=== PATIENT | female | born 1995 | race Caucasian/White ===

== ENCOUNTER 2016-08-04 19:04 | Emergency (ER) | payer BC, MEDICAID ==
[2016-08-04 19:05] VITALS: BMI 24.8
[2016-08-04 19:53] VITALS: TEMP 98.3
[2016-08-04] MEDS ORDERED: Sodium Chloride 0.9% 1,000 ML IV ONE (20:03)
--- NOTE | 2016-08-04 20:03 | C.PDOC ---
History Of Present Illness Patient presents to the ER with a complaint of right breast pain and a small mass under her right nipple. Patient had a work up with US done in [facility] in December, results showed it was not cancerous. Patient states she has noticed an increase in size and draining of serous fluid. Denies fever, chills, nausea or vomiting. Time Seen by Provider: 08/04/16 20:02 Chief Complaint (Nursing): Abnormal Skin Integrity History Per: Patient History/Exam Limitations: no limitations Onset/Duration Of Symptoms: Days Current Symptoms Are (Timing): Still Present Location Of Injury: Right: Chest (Breast) Quality Of Symptoms: Painful, Other (Mass) Severity: Mild Pain Scale Rating Of: 3 Recent travel outside of the [place]: No Past Medical History Reviewed: Historical Data, Nursing Documentation, Vital Signs Vital Signs: Last Vital Signs Temp 98.3 F 08/04/16 19:46 Pulse 97 H 08/04/16 19:46 Resp 16 08/04/16 19:46 BP 101/60 08/04/16 19:46 Pulse Ox 75 L 08/04/16 20:37 - Medical History PMH: No Chronic Diseases Surgical History: No Surg Hx - [facility] Procedures DELIVERY OF PRODUCTS OF CONCEPTION, EXTERNAL APPROACH (04/09/15) Family History: States: No Known Family Hx - Social History Hx Alcohol Use: No Hx Substance Use: No - Immunization History Hx Tetanus Toxoid Vaccination: No Hx Influenza Vaccination: No Hx Pneumococcal Vaccination: No Review Of Systems Constitutional: Negative for: Fever, Chills Gastrointestinal: Negative for: Nausea, Vomiting Musculoskeletal: Positive for: Other (Right breast pain. Right breast mass) Physical Exam - Physical Exam Appears: Non-toxic Skin: Warm, Dry Oral Mucosa: Moist Lymphatic: No Axilla Node Tenderness Chest: Symmetrical, No Tenderness, Other (Area of induration at right areola, 1x2cm mobile mass) Cardiovascular: Rhythm Regular, No Murmur Respiratory: No Rales, No Rhonchi, No Wheezing Gastrointestinal/Abdominal: Soft, No Tenderness Neurological/Psych: Oriented x3 Additional Physical Exam Comments: Patient was examined with nurse Genoveva present. ED Course And Treatment - Laboratory Results Result Diagrams: 08/04/16 20:32 O2 Sat by Pulse Oximetry: 95 Pulse Ox Interpretation: Normal Progress Note: Blood work, urinalysis and right breast US ordered. IV fluids administered. Reevaluation Time: 23:31 Reassessment Condition: Improved Medical Decision Making Medical Decision Making: Upon provider reevaluation patient is feeling better, is medically stable, and requires no further treatment in the ED at this time. Patient will be discharged home with Rx for keflex . Counseling was provided and all questions were answered regarding diagnosis and need for follow up with the referred clinic. There is agreement to discharge plan. Return if symptoms persist or worsen. Disposition Counseled Patient/Family Regarding: Studies Performed, Diagnosis, Need For Followup, Rx Given - Disposition Referrals: [facility] [Outside] [facility] [Outside] Disposition: HOME/ ROUTINE Disposition Time: 20:03 Condition: FAIR Additional Instructions: Will need a repeat US in 2-3 weeks. Do follow up in clinic Prescriptions: Cephalexin [Keflex] 500 mg PO TID #21 capsule Instructions: Cyst (ED) - Clinical Impression Clinical Impression: Galactocele - Scribe Statement The provider has reviewed the documentation as recorded by the Scribe Donnell Khalil All medical record entries made by the Daliibnikita were at my direction and personally dictated by me. I have reviewed the chart and agree that the record accurately reflects my personal performance of the history, physical exam, medical decision making, and the department course for this patient. I have also personally directed, reviewed, and agree with the discharge instructions and disposition.
[2016-08-04 20:40] LABS: BASO % 0.4 % (0.0-2.0); EOS # 0.3 K/uL (0.0-0.7); EOS % 2.2 % (0.0-4.0); LYMPH % 17.2 % (20.0-40.0); MEAN CELL VOLUME 86.8 fL (81.0-99.0); MEAN CORPUSCULAR HGB CONC 32.3 g/dL (33.0-37.0); MEAN PLATELET VOLUME 7.2 fL (7.2-11.7); MONO # 0.6 K/uL (0.0-0.8); MONO % 5.3 % (0.0-10.0); WHITE BLOOD COUNT 11.7 K/uL (4.8-10.8)
[2016-08-04 21:36] LABS: INR 1.1
[2016-08-04 22:14] LABS: RBC URINE 1 /hpf (0-3); URINE BACTERIA RARE (<OCC); URINE BILIRUBIN NEGATIVE (NEGATIVE); URINE BLOOD NEGATIVE (NEGATIVE); URINE COLOR Yellow (YELLOW); URINE GLUCOSE (UA) NORMAL (Normal); URINE KETONE NEGATIVE (NEGATIVE); URINE PROTEIN NEGATIVE (NEGATIVE); URINE UROBILINOGEN NORMAL mg/dL (0.2-1.0); WBC URINE 3 /hpf (0-5)
[2016-08-04 22:20] LABS: URINE LEUKOCYTE ESTERASE NEGATIVE Leu/uL (Negative)
[2016-08-04 23:43] VITALS: BP 110/70; PULSE 80; RESP 14; O2SAT 98
--- NOTE | 2016-08-05 11:26 | US ---
PROCEDURE: Limited ultrasound of the right breast. HISTORY: Right areolar mass COMPARISON: None TECHNIQUE: Targeted high-resolution ultrasound of the right breast was performed with real-time linear scanner. FINDINGS: In the right subareolar region at 9 o'clock position, there is a well-circumscribed echogenic area measuring 1.3 x 1.3 x 0.7 cm. There is mild peripheral increased vascularity. There is no evidence of soft tissue narrowing or calcifications. Also noted are mildly dilated retroareolar ducts. IMPRESSION: Findings are most compatible with a 1.3 cm galactocele in the right subareolar region at 9 o'clock position. Superimposed infection cannot be excluded. Clinical follow-up is advised and further management should be based on the clinical parameters. Short-term interval follow-up is recommended to assess resolution. BIRADS 3 Probably Benign Recommendation: Short-interval 6-month follow-up A preliminary report was provided by [employer] [facility].
== END 2016-08-04 23:45 | disposition home or self-care (01) ==
LOC: C.ER 19:04
DX: N64.89 Other specified disorders of breast (principal)
CPT/HCPCS: 76642; 81001; 85025; 85610; 85730; 87040; 99284; J7040